=== PATIENT | female | born 1975 | race Caucasian/White ===

== ENCOUNTER 2018-06-03 17:01 | Emergency (ER) | payer BC ==
[~2018-06-03] VITALS: Wt 77.8 kg
[2018-06-03 19:10] VITALS: BP 129/78
== END 2018-06-03 18:50 | disposition left against medical advice (07) ==
LOC: ED 17:01
DX: R55 Syncope and collapse (principal); S09.90XA Unspecified injury of head, initial encounter; M54.5 Low back pain; G90.1 Familial dysautonomia [Riley-Day]; I10 Essential (primary) hypertension; M54.30 Sciatica, unspecified side; W18.30XA Fall on same level, unspecified, initial encounter; W18.00XA Striking against unspecified object with subsequent fall, initial encounter

== ENCOUNTER → 2019-10-05 | Outpatient (CLI) | payer MEDICARE | LOC: RAD 09:25 | DX: M79.662 Pain in left lower leg (principal); R60.0 Localized edema ==